=== PATIENT | female | born 1950 | race Hispanic/Latino ===

== ENCOUNTER 2022-04-26 16:00 | Emergency (ER) | payer OTHER ==
[~2022-04-26] VITALS: Ht 149.9 cm; Wt 59.4 kg
[2022-04-26 16:02] VITALS: BP 121/74
[2022-04-26] MEDS ORDERED: AMOX/CLAV 875/125MG TAB PO ONE ×2 (16:57→17:00)
[2022-04-26] MEDS ORDERED: DIPH12.55 PO (17:04)
[2022-04-26] MEDS ORDERED: AMOX250L PO (17:04)
== END 2022-04-26 17:10 | disposition home or self-care (01) ==
LOC: EDH 16:00
DX: S00.01XA Abrasion of scalp, initial encounter (principal); B85.0 Pediculosis due to Pediculus humanus capitis; I10 Essential (primary) hypertension; F03.90 Unspecified dementia, unspecified severity, without behavioral disturbance, psychotic disturbance, mood disturbance, and anxiety; E78.00 Pure hypercholesterolemia, unspecified; X58.XXXA Exposure to other specified factors, initial encounter; Y93.89 Activity, other specified; Y92.89 Other specified places as the place of occurrence of the external cause; Y99.8 Other external cause status